=== PATIENT | female | born 1945 | race Caucasian/White ===

== ENCOUNTER → 2016-09-17 | Outpatient (CLI) | payer OTHER ==
[~2016-09-17] MED LIST: HYDR-3138 PO
== END | disposition home or self-care (01) ==
LOC: CFH 08:05
PROVIDERS: ATTEND Nurse Practitioner
DX: Z12.31 Encounter for screening mammogram for malignant neoplasm of breast (principal); N95.1 Menopausal and female climacteric states
CPT/HCPCS: G0202

== ENCOUNTER → 2016-09-22 | Outpatient (CLI) | payer OTHER | END | disposition home or self-care (01) | LOC: CFH 07:43 | PROVIDERS: ATTEND Nurse Practitioner | DX: Z13.820 Encounter for screening for osteoporosis (principal); N95.1 Menopausal and female climacteric states | CPT/HCPCS: 77080 ==

== ENCOUNTER → 2020-02-11 | Outpatient (CLI) | payer MEDICARE ==
[~2020-02-11] MED LIST changes: -HYDR-3138 PO; +HYDR-3237 PO; +LIDOCAINE-MPF 1%, 5ML ONE
== END | disposition home or self-care (01) ==
LOC: RAD 12:49 → EDSTATUS 13:00
PROVIDERS: ATTEND Nurse Practitioner
DX: E04.1 Nontoxic single thyroid nodule (principal)
CPT/HCPCS: 10005; 88112; 88305

== ENCOUNTER 2020-02-26 11:33 | Emergency (ER) | payer MEDICARE ==
[~2020-02-26] VITALS: Ht 167.6 cm; Wt 100.0 kg
[~2020-02-26 11:33] MED LIST changes: -LIDOCAINE-MPF 1%, 5ML ONE
[2020-02-26 13:18] LABS: BASOPHILS % (AUTO) 1 % (0-1); EOSINOPHILS % (AUTO) 1 % (1-7); LYMPHOCYTES % (AUTO) 9 % (22-44); MEAN CORPUSCULAR HEMOGLOBIN 31.6 pg (27.0-34.8); MEAN CORPUSCULAR HGB CONC 33.4 g/dL (32.4-35.8); MEAN PLATELET VOLUME 7.2 fL (7.4-10.4); MONOCYTES % (AUTO) 11 % (2-9); NEUTROPHILS % (AUTO) 79 % (42-75); PLATELET COUNT 135 x10^3/uL (130-400); RED BLOOD COUNT 4.34 x10^6/uL (3.82-5.3); RED CELL DISTRIBUTION WIDTH 17.8 % (9.6-15.2)
[2020-02-26 13:24] LABS: ALBUMIN 2.8 g/dL (3.4-5.0); CHLORIDE 104 mmol/L (98-107)
[2020-02-26 13:25] LABS: MD NO
[2020-02-26 13:30] LABS: ALANINE AMINOTRANSFERASE 28 U/L (12-78); ALKALINE PHOSPHATASE 425 U/L (45-117); BILIRUBIN,TOTAL 0.9 mg/dL (0.2-1.0); CREATININE 0.67 mg/dL (0.55-1.02); TOTAL PROTEIN 8.5 g/dL (6.4-8.2)
[2020-02-26 13:35] LABS: ANION GAP 5 mmol/L (5-15)
--- NOTE | 2020-02-26 16:15 | NUR ---
PT TO IR
[2020-02-26] MEDS ORDERED: LIDOCAINE 1%, 10ML ONE (16:16)
--- NOTE | 2020-02-26 17:21 | NUR ---
PT BACK FROM IR. 7L REMOVED FROM ABD. PUNCTURE SITE CDI. PT DENIES ANY COMPLAINT'S.
[2020-02-26 17:36] VITALS: BP 137/83
[2020-02-26] MEDS ORDERED: ALBUMIN HUMAN 25% 100 ML IV ONE (18:00)
== END 2020-02-26 19:37 ==
LOC: ED 17:25
DX: K70.31 Alcoholic cirrhosis of liver with ascites (principal); E88.09 Other disorders of plasma-protein metabolism, not elsewhere classified; R60.0 Localized edema; R94.31 Abnormal electrocardiogram [ECG] [EKG]; I10 Essential (primary) hypertension
CPT/HCPCS: 36415; 49083; 71045; 80053; 82042; 83615; 83880; 85025; 87070; 87205; 89051; 93005; 96365; 99285; J3490; P9047